=== PATIENT | female | born 1990 | race African-American/Black ===

== ENCOUNTER 2018-03-25 14:04 | Emergency (ER) | payer SELFPAY ==
[~2018-03-25] VITALS: Ht 162.6 cm; Wt 79.0 kg
[2018-03-25 14:09] VITALS: BP 129/90
== END 2018-03-25 20:30 | disposition left against medical advice (07) ==
LOC: ER 16:16
DX: Z53.21 Procedure and treatment not carried out due to patient leaving prior to being seen by health care provider (principal)